=== PATIENT | male | born 1990 | race Caucasian/White ===

== ENCOUNTER 2023-08-07 10:23 | Outpatient (CLI) | payer OTHER, SELFPAY ==
[2023-08-07 20:19] LABS: Hemoglobin A1C 4.4 % (<5.7)
[2023-08-07 20:47] LABS: Alanine Aminotransferase 19 U/L (6-50); Albumin Level 4.7 g/dL (3.5-5.1); Alkaline Phosphatase 68 U/L (38-126); Anion Gap 5 mmol/L (8-16); Aspartate Amino Transferase 33 U/L (17-59); Bilirubin,Total 3.6 mg/dL (0.2-1.3); Blood Urea Nitrogen 13 mg/dL (9-20); Calcium 9.3 mg/dL (8.4-10.2); Carbon Dioxide 32 mmol/L (22-30); Chloride 101 mmol/L (98-107); Cholesterol 136 mg/dL (0-200); Estimated Glomerular Filt Rate > 60; Glucose 90 mg/dL (65-110); HDL Direct 31 mg/dL; LDL Cholesterol Direct 76 mg/dL; Potassium 4.3 mmol/L (3.4-5.0); Sodium 138 mmol/L (137-145); Triglycerides 110 mg/dL (<150); Uric Acid 5.5 mg/dL (3.5-8.5)
[2023-08-08 06:43] LABS: Trichomonas Vag PCR NOT DETECTED (NOT DETECTE)
[2023-08-08 07:08] LABS: Chlamydia trachomatis NOT DETECTED (NOT DETECTE); Neisseria gonorrhoeae PCR NOT DETECTED (NOT DETECTE)
[2023-08-08 10:29] LABS: Rapid Plasma Reagin Non-Reactive (NonReactive)
[2023-08-09 11:51] LABS: HIV 1 2 Ag Ab 4th Gen w Rflxs Nonreactive (Nonreactive)
== END 2023-08-07 10:24 | disposition home or self-care (01) ==
LOC: ANHGOSHLAB 10:24
PROVIDERS: PCP Emergency Medicine; Visit Provider Emergency Medicine
DX: Z13.1 Encounter for screening for diabetes mellitus (principal); M79.673 Pain in unspecified foot; Z82.49 Family history of ischemic heart disease and other diseases of the circulatory system; Z11.3 Encounter for screening for infections with a predominantly sexual mode of transmission
CPT/HCPCS: 36415; 80053; 80061; 83036; 84550; 86592; 87389; 87491; 87591; 87661